=== PATIENT | male | born 2000 | race Caucasian/White ===

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

== ENCOUNTER 2020-06-27 20:25 | Emergency (ER) | payer BC ==
[~2020-06-27] VITALS: Ht 182.9 cm; Wt 131.9 kg
[~2020-06-27 20:25] MED LIST: CARA1TAB6 PO; OMEP-218 PO
--- NOTE | 2020-06-27 23:02 | REPVR ---
PROCEDURE INFORMATION: Exam: US Scrotum Exam date and time: 06/27/2020 10:20 PM Age: 19 years old Clinical indication: Other: Left testicular lump; Additional info: Left testicular lump noticed yesterday, states no pain or discomfort TECHNIQUE: Imaging protocol: Real-time ultrasound of the scrotum and contents with color Doppler and image documentation. COMPARISON: No relevant prior studies available. FINDINGS: Right testicle: Right testes measures 4.9 x 2.3 x 3.0 cm. Normal vascularity. Left testicle: Left testes measures 4.9 x 2.4 x 3.6 cm. Left testicular midpole micro calcifications. Epididymides: Multiple right epididymal cysts with the largest measuring 3 x 3 by 2 mm. Multiple left epididymal cysts with the largest measuring 8 x 3 x 6 mm. Scrotum: Normal. IMPRESSION: No acute abnormality. Left testicular microcalcifications. Electronically signed by: Juan M Soto On 06/27/2020 23:01:58 PM
[2020-06-27 23:49] VITALS: BP 135/77
== END 2020-06-28 00:10 | disposition home or self-care (01) ==
LOC: M ED 20:25
DX: N50.3 Cyst of epididymis (principal)

== ENCOUNTER → 2021-12-15 | Outpatient (CLI) | payer BC ==
[~2021-12-15] MED LIST changes: +OMEP-173 PO; -OMEP-218 PO
== END ==
LOC: M RAD 10:53
PROVIDERS: ATTEND Urology
DX: N50.82 Scrotal pain (principal); N50.3 Cyst of epididymis

== ENCOUNTER → 2023-01-10 | Outpatient (CLI) | payer BC | LOC: M RAD 13:48 | PROVIDERS: ATTEND Urology | DX: N50.3 Cyst of epididymis (principal) ==